=== PATIENT | female | born 2005 | race Two or more races ===

== ENCOUNTER → 2024-10-14 | Outpatient (CLI) | payer MEDICAID, SELFPAY ==
--- NOTE | 2024-10-14 14:04 | XR_ITS ---
Examination: Breast ultrasound, unilateral, left complete Date and time of exam: October 14, 2024 1418 hours INDICATIONS: Patient states left breast lump 4:00 position 1 year, 4:00 nodule 17 x 17 x 18 mm on left breast sonogram November 18, 2023 Technique: Real-time dyson scale ultrasonographic imaging performed left breast including all 4 quadrants as well as nipple retroareolar and axillary region. Findings: 4:00 nodule 14 x 9 x 16 mm IMPRESSION: BI-RADS Category 3: Probably benign findings Recommend continued 6 month follow-up left breast sonography to document stability of nodule in the left breast 4:00 position
== END | disposition home or self-care (01) ==
LOC: CDIM 13:54
PROVIDERS: PCP Registered Nurse Community Health; Referring Provider Registered Nurse Community Health; Visit Provider Registered Nurse Community Health
DX: N63.23 Unspecified lump in the left breast, lower outer quadrant (principal)
CPT/HCPCS: 76641